=== PATIENT | male | born 1965 | race Caucasian/White ===

== ENCOUNTER 2022-03-17 16:29 | Observation (INO) ==
[2022-03-17] MEDS ORDERED: Lactated Ringers 1000 ml BAG 1,000 ML IV ONE ×2 (16:36→17:14)
[2022-03-17] MEDS ORDERED: Morphine 4 MG/ML VIAL (1 ml) IV ONE ×2 (16:36→18:29)
[2022-03-17] MEDS ORDERED: Ondansetron 4 mg VIAL 2 MG/ML 2 ml VIAL IV ONE (16:36)
[2022-03-17] MEDS ORDERED: Iodixanol (CONTRAST) 320 MG/ML 100 ML SDV IV ONE (16:54)
[2022-03-17 16:55] LABS: ABS Lymphocytes 1.7 10^3/ul (1.0-4.8); ABS Neutrophils 12.5 10^3/ul (1.5-7.7); Hematocrit 45 % (42-52); Hemoglobin 14.8 g/dL (14.0-18.0); Lymphocyte % 11.3 %; Mean Corpuscular HGB Conc 33 g/dL (31-36); Mean Corpuscular Hemoglobin 31 pg (27-31); Mean Corpuscular Volume 95 fL (80-94); Mean Platelet Volume 6.4 fL (7.4-10.4); Platelet Count 550 10^3/uL (150-450); Red Blood Count 4.73 10^6 /uL (4.18-5.48); Red Cell Distribution Width 14 % (10-15); White Blood Count 15.2 10^3/uL (3.5-10.8)
[2022-03-17 17:35] LABS: ALT 15 U/L (7-52); AST 15 U/L (13-39); Albumin 4.3 g/dL (3.2-5.2); Albumin/Globulin Ratio 1.6 (1-3); Alkaline Phosphatase 86 U/L (35-149); Anion Gap 12 mmol/L (2-11); Blood Urea Nitrogen 15 mg/dL (6-24); CO2 Carbon Dioxide 25 mmol/L (22-32); Calcium 9.2 mg/dL (8.6-10.3); Chloride 97 mmol/L (101-111); Globulin 2.7 g/dL (2-4); Glucose 140 mg/dL (70-100); Lipase 31 U/L (11.0-82.0); Potassium 4.2 mmol/L (3.5-5.0); Sodium 134 mmol/L (135-145); eGFR CKD-EPI 107.5 (>60)
[2022-03-17 18:19] LABS: Alcohol, S < 13 mg/dL (<13)
[2022-03-17] MEDS ORDERED: Thiamine 100 MG/ML 2 ml VIAL (200 mg) IM ONE (19:17)
[2022-03-17] MEDS ORDERED: HYDROmorphone 0.5 MG/0.5 ML SYRINGE IV ONE (19:18)
[2022-03-17] MEDS ORDERED: Acetaminophen IV 1 GM/100ML 1,000 MG/100 ML BAG IV PRN (19:27)
[2022-03-17] MEDS ORDERED: NS 0.9% 1000 ml BAG 1,000 ML IV SCH ×3 (19:30→22:00)
[2022-03-17] MEDS ORDERED: Pantoprazole VIAL 40 MG VIAL IV ONE (19:30)
[2022-03-17 19:35] LABS: Urine Benzodiazepine Screen None Detected (None Detect); Urine Cannabinoids Screen None Detected (None Detect); Urine Opiates Screen Presumptive Positive (None Detect)
[2022-03-17] MEDS: Multivitamins/Minerals TAB PO SCH (20:42)
[2022-03-17 21:39] LABS: Urine Appearance Clear; Urine Bilirubin Negative (Negative); Urine Blood Negative (Negative); Urine Color Yellow; Urine Glucose Negative (Negative); Urine Ketones Negative (Negative); Urine Nitrite Negative (Negative); Urine Protein Negative (Negative); Urine Urobilinogen Negative (Negative)
[2022-03-17 21:51] LABS: Urine Specific Gravity > 1.060 (1.002-1.030)
[2022-03-17] MEDS ORDERED: NS 0.9% 1000 ml BAG 1,000 ML IV ONE (21:56)
[2022-03-17 22:09] LABS: Amylase 48 U/L (29-103)
[2022-03-17] MEDS ORDERED: HYDROmorphone 0.5 MG/0.5 ML SYRINGE IV PRN (22:20)
[2022-03-17] MEDS ORDERED: BEBTELOVIMAB 175 MG/2 ML VIAL IV ONE (23:17)
[2022-03-18] MEDS ORDERED: NS 0.9% 1000 ml BAG 1,000 ML IV ONE (00:16)
[2022-03-18] MEDS ORDERED: Senna TAB 8.6 mg TAB PO PRN (01:26)
[2022-03-18] MEDS: HYDROmorphone 1 MG/1 ML SYRINGE IV SLOW PU PRN ×2 (01:33→07:47)
[2022-03-18] MEDS: HYDROmorphone 0.5 MG/0.5 ML SYRINGE IV PRN ×5 (02:36→21:42)
[2022-03-18 06:37] LABS: ABS Eosinophils 0.1 10^3/ul (0-0.6); ABS Lymphocytes 2.5 10^3/ul (1.0-4.8); ABS Monocytes 1.1 10^3/ul (0-0.8); ABS Neutrophils 8.9 10^3/ul (1.5-7.7); Eosinophil % 0.5 %; Hematocrit 37 % (42-52); Hemoglobin 12.7 g/dL (14.0-18.0); Mean Corpuscular HGB Conc 34 g/dL (31-36); Mean Corpuscular Hemoglobin 32 pg (27-31); Mean Corpuscular Volume 94 fL (80-94); Mean Platelet Volume 6.1 fL (7.4-10.4); Platelet Count 441 10^3/uL (150-450); Red Blood Count 3.98 10^6 /uL (4.18-5.48); Red Cell Distribution Width 13 % (10-15); White Blood Count 12.6 10^3/uL (3.5-10.8)
[2022-03-18 07:08] LABS: Albumin 3.5 g/dL (3.2-5.2); Albumin/Globulin Ratio 1.7 (1-3); Calcium 8.1 mg/dL (8.6-10.3); Globulin 2.1 g/dL (2-4); Potassium 4.1 mmol/L (3.5-5.0); Total Bilirubin 0.3 mg/dL (0.2-1.0); Total Protein 5.6 g/dL (6.4-8.9); eGFR CKD-EPI 116.9 (>60)
[2022-03-18] MEDS: Multivitamins/Minerals TAB PO SCH (07:47)
[2022-03-18] MEDS: Polyethylene Glycol 3350 17 GM PACKET PO PRN (17:56)
[2022-03-19] MEDS: HYDROmorphone 0.5 MG/0.5 ML SYRINGE IV PRN ×2 (03:19→09:53)
[2022-03-19 06:24] LABS: Hematocrit 40 % (42-52); Hemoglobin 13.6 g/dL (14.0-18.0); Mean Corpuscular HGB Conc 34 g/dL (31-36); Mean Corpuscular Hemoglobin 32 pg (27-31); Mean Corpuscular Volume 94 fL (80-94); Mean Platelet Volume 6.7 fL (7.4-10.4); Platelet Count 424 10^3/uL (150-450); Red Blood Count 4.28 10^6 /uL (4.18-5.48); Red Cell Distribution Width 13 % (10-15)
[2022-03-19 07:04] LABS: Calcium 9.3 mg/dL (8.6-10.3); Magnesium 1.9 mg/dL (1.9-2.7); Potassium 4.6 mmol/L (3.5-5.0)
[2022-03-19] MEDS: Polyethylene Glycol 3350 17 GM PACKET PO PRN (09:52)
[2022-03-19] MEDS: Multivitamins/Minerals TAB PO SCH (09:53)
[2022-03-19] MEDS ORDERED: Magnesium Hydroxide LIQ 30 ML UDC PO ONE (15:19)
[2022-03-19 17:22] VITALS: BP 136/82
== END 2022-03-19 18:55 | disposition home or self-care (01) ==
LOC: ED 16:29 → EDHOLD 16:29 → SUATTDRO 18:38 → MED 03-18 00:17
PROVIDERS: ADMIT Student in an Organized Health Care Education/Training Program; ATTEND Hospitalist